=== PATIENT | male | born 1985 | race Caucasian/White ===

== ENCOUNTER 2024-05-27 17:10 | Emergency (ER) | payer BC, SELFPAY ==
[2024-05-27 17:12] VITALS: BP 173/95
[2024-05-27] MEDS: AUGMENTIN 875 MG/125 MG 1 TABLET PO (20:59)
[2024-05-27] MEDS: MOTRIN 600 MG PO (21:04)
--- NOTE | 2024-05-27 21:23 | EDRN ---
Patients hand wrapped and cleaned, finger splint applied with re-wrap instructions
--- NOTE | 2024-05-27 22:29 | ED.SKININJ ---
HPI-Injury
General
Chief Complaint: Bite
Source: patient
Exam Limitations: none
Time Seen by Provider: 05/27/24 19:16
Nursing documentation reviewed up to this point in time: agreed with
History of Present Illness-Injury
Is this injury a work related problem?: No
Is pt an associate of [facility]?: No
Initial Injury comments:
Patient states his dogs were fighting and he tried to break them apart. Sustained bite to right hand at base of index finger (dorsal side), medial aspect of right proximal index finger. Injury occurred just [employer]
Past History
Past History
ED Past Medical History: IDDM
ED Past Surgical History: Other (Dental surgery)
Social History
Tobacco: Non-smoker
Alcohol: None
Drug: None
Personal:
Living: with family
Employment: Employed
Family History
Family History: Diabetes and Other
Review of Systems
Review of Systems
Allergies reviewed?: Yes
All Other Systems: ROS reviewed and negative except as documented in HPI and ROS
Constitutional: Reports no symptoms
Musculoskeletal: Reports joint pain (pain and swelling to base of right index finger)
Skin: Reports other (Dog bite to right hand at base of index finger and medial aspect of index finger)
Neurological: Reports no symptoms
Psychiatric: Reports no symptoms
Skin Exam
Bite
Right Medial Second Finger:
Type: animal
Skin has: full thickness laceration
Laceration length in cm: 2
Surrounding area around bite has: no evidence of erythema
Distal skin color and temperature: normal-warm & good color
Normal distal neurovascular exam: Yes
Right Proximal Dorsal Second Finger:
Type: animal
Skin has: full thickness laceration
Laceration length in cm: 2
Surrounding area around bite has: no evidence of erythema
Distal skin color and temperature: normal-warm & good color
Normal distal neurovascular exam: Yes
Phy Exam
General Physical Exam
General Presentation: well appearing and no apparent distress
General age: appears stated age
General Skin: warm and dry
General Habitus: normal
General Mental: alert
Musculoskeletal Exam
Musculoskeletal Exam: neuro vasc intact
Skin Exam
Skin Exam: normal color, warm/dry and no rash
Psychiatric Exam
Psychiatric Exam: normal mood/affect
Course
Orders/Labs/Results
Orders:
Orders
05/27/24 20:35
Hand, Right 3 View [CR Hand - Right Min 3 Views] Urgent
Comment:
Reason For Exam: dog bite
05/27/24 20:38
Amoxicillin 875 mg/Clav 125 mg [Augmentin 875 mg/125 mg] 1 tablet PO NOW STA
05/27/24 21:01
Ibuprofen [Motrin] 600 mg .ROUTE .STK-MED ONE
05/27/24 21:04
Ibuprofen [Motrin] 600 mg PO NOW STA
Vital Signs
Initial and Last Documented VS:
Initial Vital Signs
Temp Pulse Resp BP Pulse Ox
97.8 F 100 22 173/95 100
05/27/24 17:12 05/27/24 17:12 05/27/24 17:12 05/27/24 17:12 05/27/24 17:12
Last Documented Vital Signs
Temp Pulse Resp BP Pulse Ox
97.8 F 100 22 173/95 100
05/27/24 17:12 05/27/24 17:12 05/27/24 17:12 05/27/24 17:12 05/27/24 17:12
Procedures
Laceration Closure
Right Proximal Dorsal Second Finger:
Status of Wound: clean
Description of Wound Edges: sharp
Preparation: cleaned with saline
Anesthesia: 1% Lidocaine
Revision/Debridement: routine- no revision and irrigate-direct pressure
Wound exploration: explored to base- no FB and no tendon involvement
Type of Closure: single layer closure
Skin Closure Material: 5-0 prolene
Right Medial Proximal Second Finger:
Status of Wound: clean
Description of Wound Edges: sharp
Preparation: cleaned with saline
Anesthesia: 1% Lidocaine
Revision/Debridement: routine- no revision and irrigate-direct pressure
Wound exploration: explored to base- no FB and no tendon involvement
Type of Closure: single layer closure
Skin Closure Material: 5-0 prolene
*Radiology
Radiology exam reviewed: radiology read reviewed
*Pulse Oximetry
Patient hypoxic: no
*Critical Care Note
Total Time (30-74mins, 75-104mins- exclusive of procedures): Not Applicable
Update Note
Update Note:
Patient to ED s/p dog bite by own dogs. Has laceration to base of index finger and medial index finger on right. Tendon intact. Xray reviewed and shows avulsion fx to base of proximal phalanx of index finger. Placed on antibiotic in dept.
FInger splint and dressing applied by RN. WIll discharge home and he will follow up with ortho on Wednesday. Given instructions on s/s to return to ED and he is agreeable to plan.
ED Attending Note
-
Portions of this chart may have been created with voice recognition software.� Occasional wrong word or��sound alike� substitutions may have occurred due to the inherent limitations of voice recognition software.
Discharge Plan
Departure
Patient Disposition: Home (Routine Discharge)
Date of Disposition: 05/27/24
Time of Disposition: 21:12
Patient with high blood pressure during this ER visit?: No
Condition: Good
Discharge Problem:
Dog bite of hand
Instructions: Animal Bites (DC), Laceration Repair With Stitches (DC)
Prescriptions:
New
amoxicillin-pot clavulanate 875-125 mg tablet
1 tab PO BID Qty: 20 0RF
hydrocodone-acetaminophen 5-325 mg tablet
1 tab PO Q4H PRN (Reason: Pain) Qty: 14 0RF
No Action
amoxicillin 500 mg capsule
500 mg PO Q12H
insulin lispro 100 unit/mL insulin pen
24 unit SC AC
Levemir FlexTouch U100 Insulin 100 unit/mL (3 mL) insulin pen
20 unit SC HS
Referrals:
Jackie Jenkins CRNP [Family Provider] -
Leonel Lyn MD [Active] - Call in 1-3 days for appt
Stand Alone Forms: Return to Work
Interventions
Interventions:
*Risk Screen - Suicide Last Done: 05/27/24 17:12
*General Assessment Last Done: 05/27/24 17:12
*Neglect/Abuse Screening Last Done: 05/27/24 17:12
ED- Fall Risk Assessment Last Done: 05/27/24 19:56
*ED COVID-19 Vaccine History Last Done: 05/27/24 21:23
*Nursing Disposition Last Done: 05/27/24 21:23
ED-Skin Assessment Last Done: 05/27/24 19:56
Discharge Date and Time
Discharge Date/Time: 05/27/24 21:23
Print Language: [id number]
== END 2024-05-27 21:23 | disposition home or self-care (01) ==
LOC: EMR 17:10
PROVIDERS: EMERGENCY PHYSICIAN Emergency Medicine; FAMILY PHYSICIAN Nurse Practitioner
DX: S61.210A Laceration without foreign body of right index finger without damage to nail, initial encounter (principal); W54.0XXA Bitten by dog, initial encounter; E11.9 Type 2 diabetes mellitus without complications; Z79.4 Long term (current) use of insulin
CPT/HCPCS: 99283; 12001; 73130